=== PATIENT | male | born 1945 | race Caucasian/White ===

== ENCOUNTER → 2017-02-26 | Outpatient (CLI) | payer MEDICARE, BC ==
[2017-02-26 09:40] LABS: ANION GAP 11.1 (10.0-19.0); CALCIUM 8.6 mg/dL (8.5-10.5); CREATININE 2.2 mg/dL (0.6-1.3); POTASSIUM 4.1 mMol/L (3.7-5.1)
[2017-02-26 09:42] LABS: PHOSPHORUS 1.9 mg/dL (2.5-4.9)
== END | disposition disaster alternative care site (69) ==
LOC: LGSMG 09:20
PROVIDERS: Internal Medicine Nephrology
DX: N18.4 Chronic kidney disease, stage 4 (severe) (principal)